=== PATIENT | male | born 1945 | race Caucasian/White ===

== ENCOUNTER 2017-02-23 05:42 | Day surgery (SDC) | payer MEDICARE, OTHER ==
--- NOTE | ~2017-02-23 | EGD ---
EGD REPORT [facility] [address] [place] [address] NAME: LELAND STANLEY : [birth year] STATUS : REG [facility]#: [id number] AGE: 71 ADM/REG DATE : 02/23/17 MR#: [id number] REPORT SERV DATE: 02/23/17 DICTATED BY: DAVID FELICIANO DATE: 02/23/17 REPORT STATUS : Draft TRANSCRIBED BY: [facility] DATE: 02/23/17 Endoscopy Center Patient Name: Leland Stanley Date of : 1945 Attending MD: DAVID FELICIANO MD Procedure Date No Time: 02/23/2017 Procedure: Upper GI endoscopy Indications: Cirrhosis rule out esophageal varices Referring MD: CONSTANTINO PECK Medicines: as per anesthesia Complications: No immediate complications. Procedure: Pre-Anesthesia Assessment: - ASA Grade Assessment: III - A patient with severe systemic disease. After obtaining informed consent, the endoscope was passed under direct vision. Throughout the procedure, the patient's blood pressure, pulse, and oxygen saturations were monitored continuously. The GIF [id number] was introduced through the mouth, and advanced to the second part of duodenum. The upper GI endoscopy was accomplished without difficulty. The patient tolerated the procedure. Findings: The examined esophagus was normal. Localized moderate inflammation characterized by erythema was found in the gastric antrum. Biopsies were taken with a cold forceps for histology. The cardia and gastric fundus were normal on retroflexion. The examined duodenum was normal. Impression: - Normal esophagus. - Gastritis. Biopsied. - Normal examined duodenum. Recommendation: - Await pathology results. - Continue present medications. Procedure Code(s): --- Professional --- 75358, Esophagogastroduodenoscopy, flexible, transoral; with biopsy, single or multiple Diagnosis Code(s): --- Professional --- K29.70, Gastritis, unspecified, without bleeding K74.60, Unspecified cirrhosis of liver EGD REPORT [facility] [address] [facility] [place]. [address] NAME: LELAND STANLEY : [birth year] STATUS : REG [facility] PAT#: [id number] AGE: 71 ADM/REG DATE : 02/23/17 MR#: [id number] REPORT SERV DATE: 02/23/17 DICTATED BY: DAVID FELICIANO. DATE: 02/23/17 REPORT STATUS : Draft TRANSCRIBED BY: [employer] DATE: 02/23/17 CPT copyright 2013 [employer]. All rights reserved. The codes documented in this report are preliminary and upon computer language coder review may be revised to meet current compliance requirements. DAVID FELICIANO MD 02/23/2017 7:45 AM This report has been signed electronically. Number of Addenda: 0 Note Initiated On: 02/23/2017 7:25 AM Scope Withdrawal Time 0 hours 0 minutes [address] [place] [address]
[~2017-02-23 05:42] MED LIST: ACET500CAP PO; ADVIL PO; CIP5 PO; DIOVAN HC1 PO; DITRO5 PO; DSS PO; FLOMAX4 PO; NEXIUM40 PO; OXYCOD PO; PROAIR HFA INH; PROVENTSOL INH; SPIRO50 PO; T PO; V2 PO; ZETIA PO
== END 2017-02-23 23:59 | disposition home or self-care (01) ==
LOC: DMU 05:42
PROVIDERS: Internal Medicine Gastroenterology
PROC: 0DB68ZX Excision of Stomach, Via Natural or Artificial Opening Endoscopic, Diagnostic (ICD-10-PCS; principal; 2017-02-23 07:30)
DX: K29.70 Gastritis, unspecified, without bleeding (principal); K74.60 Unspecified cirrhosis of liver; I10 Essential (primary) hypertension; K21.9 Gastro-esophageal reflux disease without esophagitis; J44.9 Chronic obstructive pulmonary disease, unspecified; Z98.41 Cataract extraction status, right eye; Z98.42 Cataract extraction status, left eye; Z96.1 Presence of intraocular lens; Z90.89 Acquired absence of other organs; Z79.899 Other long term (current) drug therapy
CPT/HCPCS: 88305